=== PATIENT | male | born 1950 | race American Indian/Alaskan Native ===

== ENCOUNTER 2024-04-07 09:02 | Emergency (ER) | payer SELFPAY ==
[2024-04-07 09:08] VITALS: BP 146/75
--- NOTE | 2024-04-07 09:49 | ED.GENMED ---
History of Present Illness
General
Chief Complaint: Musculo-Skeletal Complaint
Source: patient
Exam Limitations: none
Time Seen by Provider: 04/07/24 09:22
Travel History
Have you had any contact with someone who has COVID-19?: No
Do you have any symptoms of coronavirus? Fever > 100 degrees, chills, cough, shortness of breath, sore throat, loss of taste or smell, muscle aches, or headache?: No
History of Present Illness
History of Present Illness:
See MDM
Past History
Past History
ED Past Medical History: None
ED Past Surgical History: None
Social History
Tobacco: Non-smoker
Alcohol: None
Phy Exam
Physical Exam
Physical Exam:
See MDM
Course
Orders/Labs/Results
Orders:
Orders
04/07/24 09:12
CR Shoulder - Right Min 2 View Urgent
Comment:
Reason For Exam: pain
04/07/24 09:48
Oxycodone/Acetaminophen [Percocet 5/325] 1 tablet PO NOW STA
Prednisone [Deltasone] 50 mg PO NOW STA
Vital Signs
Initial and Last Documented VS:
Initial Vital Signs
Temp Pulse Resp BP Pulse Ox
98.1 F 69 20 146/75 98
04/07/24 09:08 04/07/24 09:08 04/07/24 09:08 04/07/24 09:08 04/07/24 09:08
Last Documented Vital Signs
Temp Pulse Resp BP Pulse Ox
98.1 F 69 20 146/75 98
04/07/24 09:08 04/07/24 09:08 04/07/24 09:08 04/07/24 09:08 04/07/24 09:08
MDM/Problems Addressed
Differential Diagnosis Includes:
HPI and MDM Narrative:
73-year-old male presenting with right shoulder pain.
Patient was in the pool yesterday playing with his granddaughter. His son at bedside is unsure if he injured his shoulder playing or swimming.
On exam, he is uncomfortable. There is decreased range of motion of his right shoulder secondary to pain. The extremity is otherwise neurovascularly intact
Physical exam
General: Well appearing and non-toxic
HEENT: protecting airway
Neck: appears supple
CV: No evidence of cyanosis
Resp: No accessory muscle use
Abd: Non-distended
Extremities: Mild tenderness to palpation along anterior right shoulder. Decreased range of motion secondary to pain. Sensation and pulses intact
Neuro: alert
Psych: Normal affect
Skin: Intact
Problems Addressed including Acute and Chronic Conditions affecting care:
1. Calcific tendinitis
Acuity: acute
Prognosis: stable
Details: X-ray consistent with calcific tendinitis. Will start steroids and pain medicine. He is going back to [facility] in 2 months discussed follow-up with orthopedics
Updates
Differential Diagnosis (but not limited to): Shoulder sprain, calcific tendonitis
Testing considered: EKG
Drug therapy (if applicable): OTC meds, please see d/c instruction regarding Rx drugs
Amount and/or Complexity of Data Reviewed
Clinical info obtained from: Patient
External data reviewed: N/A
Labs I independently reviewed (but not limited to): N/A
Radiology: X-ray independently reviewed: right shoulder consistent with calcific tendinitis
Pulse Ox: not hypoxic
EKG independently reviewed: N/A
Food Editor: N/A
Critical Care: N/A
Risk of Complication:
Social Determinants of health: Good social support
Discussed with other providers: N/A
Escalation of Care includes Admit/Obs: After being observed in the Emergency Department, pt stable for discharge.
Occasional wrong word or 'sound a like' substitutions may have occurred due to the inherent limitations of voice recognition software. Read the chart carefully and recognize, using context, where substitutions have occurred.
*Critical Care Note
Total Time (30-74mins, 75-104mins- exclusive of procedures): Not Applicable
ED Attending Note
-
Portions of this chart may have been created with voice recognition software.� Occasional wrong word or��sound alike� substitutions may have occurred due to the inherent limitations of voice recognition software.
Discharge Plan
Departure
Patient Disposition: Home (Routine Discharge)
Date of Disposition: 04/07/24
Time of Disposition: 10:31
Patient with high blood pressure during this ER visit?: Yes
Discharge Problem:
Calcific tendinitis
Instructions: BLOOD PRESSURE
Prescriptions:
New
prednisone 20 mg tablet
40 mg PO DAILY Qty: 10 0RF
tramadol 50 mg tablet
50 mg PO BID PRN (Reason: pain) Qty: 14 0RF
Referrals:
Jarrod Gaines MD [Active] -
Activity Restrictions/Additional Instructions:
Please return for any worsening symptoms.
You may return at any time if you have further concerns.
Please follow up with your doctor at the first available appointment, preferably this week.
Please make an appointment to see the orthopedist.
Thank you for choosing [facility].
Interventions
Interventions:
*Risk Screen - Suicide Last Done: 04/07/24 09:08
*General Assessment Last Done: 04/07/24 09:08
*Neglect/Abuse Screening Last Done: 04/07/24 09:08
*ED COVID-19 Vaccine History Last Done: 04/07/24 09:56
ED-Musculoskeletal Assessment Last Done: 04/07/24 09:56
Discharge Date and Time
Print Language: HONDURAN
[2024-04-07 09:56] VITALS: BMI 28.2
[2024-04-07] MEDS: DELTASONE 50 MG PO (09:59)
[2024-04-07] MEDS: PERCOCET 5/325 1 TABLET PO (10:00)
[2024-04-07 11:00] VITALS: BP 142/67
== END 2024-04-07 11:00 | disposition home or self-care (01) ==
LOC: EMR 09:02
PROVIDERS: EMERGENCY PHYSICIAN Student in an Organized Health Care Education/Training Program
DX: M75.31 Calcific tendinitis of right shoulder (principal); R03.0 Elevated blood-pressure reading, without diagnosis of hypertension
CPT/HCPCS: 99283; 73030